=== PATIENT | male | born 1945 | race Caucasian/White ===

== ENCOUNTER → 2016-12-15 | Outpatient (CLI) | payer MEDICARE, BC | END | disposition home or self-care (01) | LOC: RESC 12-14 10:06 | DX: C34.32 Malignant neoplasm of lower lobe, left bronchus or lung (principal); C61 Malignant neoplasm of prostate; I26.99 Other pulmonary embolism without acute cor pulmonale; Z90.6 Acquired absence of other parts of urinary tract; Z98.890 Other specified postprocedural states; Z87.891 Personal history of nicotine dependence ==